=== PATIENT | female | born 1955 | race Caucasian/White ===

== ENCOUNTER 2018-10-15 13:28 | Inpatient (IN) | payer OTHER ==
[~2018-10-15] VITALS: Ht 165.1 cm; Wt 69.9 kg
[2018-10-15 14:00] VITALS: BP 110/79
--- NOTE | 2018-10-15 14:10 | NUR ---
Patient biba to er bed 9
--- NOTE | 2018-10-15 14:13 | NUR ---
Note mianone in EDM - 10/15/[address] [facility] MANNY. PATIENT C/O OF GENERALIZED WEAKNESS. VSS. AAOX4, ABLE TO VERBALIZE. NO COMPLAINTS OF PAIN. ABLE TO MOVE EXTREMITIES. NO TRAUMA OR INJURY.
--- NOTE | 2018-10-15 14:13 | NUR ---
BIBA. PATIENT C/O OF GENERALIZED WEAKNESS. VSS. AAOX4, ABLE TO VERBALIZE. NO COMPLAINTS OF PAIN. ABLE TO MOVE EXTREMITIES. NO TRAUMA OR INJURY. PMH: DENIES ALLERGIES: NKA MED RX: DENIES
--- NOTE | 2018-10-15 14:15 | NUR ---
PATIENT PRESENTS TO ED WITH GENERALIZED WEAKNESS.DENIES N/V/D. AAOX4. PATIENT STATES PAIN OF 0/10 AT THIS TIME;VSS; ABLE TO MOVE EXTREMITIES. DENIES ANY TRAUMA. PATIENT POSITIONED FOR COMFORT; HOB ELEVATED; BEDRAILS UP X2; BED DOWN. ER MD MADE AWARE OF PT STATUS. PMH: DENIES ALLLERGIES:NKA MED RX: DENIES
--- NOTE | 2018-10-15 14:40 | NUR ---
Patient being evaluated by physician at bedside.
--- NOTE | 2018-10-15 15:00 | NUR ---
LAB AT BEDSIDE
--- NOTE | 2018-10-15 15:09 | NUR ---
PT TO CT VIA RED WITH MANAGER RECRUITING
[2018-10-15 15:24] LABS: BASOPHILS # (AUTO) 0.1 K/uL (0.00-0.22); BASOPHILS % (AUTO) 0.3 % (0.0-2.0); EOSINOPHILS # (AUTO) 0.1 K/uL (0-0.4); EOSINOPHILS % (AUTO) 0.4 % (0.0-4.0); HEMATOCRIT 50.2 % (36-48); HEMOGLOBIN 16.4 g/dL (12.0-16.0); LYMPHOCYTES # (AUTO) 2.1 K/uL (2.5-16.5); LYMPHOCYTES % (AUTO) 9.9 % (20.5-51.1); MEAN CORPUSCULAR HEMOGLOBIN 26 pg (27-31); MEAN CORPUSCULAR HGB CONC 33 g/dL (33-37); MEAN CORPUSCULAR VOLUME 78.2 fL (80-94); MONOCYTES # (AUTO) 0.9 K/uL (0.8-1.0); MONOCYTES % (AUTO) 4.5 % (1.7-9.3); NEUTROPHILS # (AUTO) 17.5 K/uL (1.8-7.7); NEUTROPHILS % (AUTO) 84.9 % (42.2-75.2); PLATELET COUNT (AUTO) 454 K/uL (140-450); RED BLOOD CELL COUNT(AUTO) 6.42 MIL/uL (4.20-5.40); RED CELL DISTRIBUTION WIDTH 15.1 % (11.6-13.7); WHITE BLOOD COUNT (AUTO) 20.7 K/uL (4.8-10.8)
--- NOTE | 2018-10-15 15:24 | NUR ---
PT BACK FROM CT
[2018-10-15 15:41] LABS: BARBITURATE, URINE NEG. ng/ml (NEG <=200); BENZODIAZEPINE, URINE NEG. ng/mL (NEG <=200); CANNABINOID, URINE NEG. ng/mL (NEG <=50); COCAINE, URINE NEG. ng/mL (NEG <=300); OPIATE, URINE NEG. ng/mL (NEG <=2000); PHENCYCLIDINE SCREEN,URINE NEG. ng/mL (NEG <=25)
[2018-10-15 16:00] LABS: ALBUMIN 2.7 g/dL (3.4-5.0); ANION GAP 15.8 (8-16); ASPARTATE AMINOTRANSFERASE 42 U/L (15-37); CARBON DIOXIDE 27.4 mmol/L (21-32); CHLORIDE 104 mmol/L (98-107); GLUCOSE 116 mg/dL (74-106); POTASSIUM 3.2 mmol/L (3.5-5.1); SALICYLATE 4.5 mg/dL (2.8-20.0); SODIUM SERUM 144 mmol/L (136-145); TOTAL BILIRUBIN 0.7 mg/dL (0.0-1.0); UREA NITROGEN, BLOOD 37 mg/dL (7-18)
[2018-10-15 16:05] LABS: ACETAMINOPHEN < 0.5 ug/ml (10-30)
[2018-10-15 16:06] LABS: APPEARANCE,URINE CLEAR (CLEAR); BLOOD, URINE NEGATIVE (NEGATIVE); COLOR,URINE YELLOW (YELLOW); UGLUCOSE NEGATIVE (NEGATIVE)
[2018-10-15 16:07] LABS: BILIRUBIN,URINE 2+ (NEGATIVE); LEUKOCYTE ESTERASE ,URINE NEGATIVE (NEGATIVE); NITRITE, URINE NEGATIVE (NEGATIVE)
[2018-10-15 16:12] LABS: RBC,URINE NONE SEEN /HPF (0-5); WBC,URINE NONE SEEN /HPF (0-5)
[2018-10-15] MEDS ORDERED: ASPIRIN 81 MG TAB.CHEW PO ONE (16:15)
[2018-10-15] MEDS ORDERED: NACL 0.9% 1,000 ML IV ONE ×2 (16:15→17:10)
[2018-10-15 16:21] LABS: CREATININE 1.5 mg/dL (0.6-1.3); GFR ARICAN-AMERICAN 45 mL/min (>90)
[2018-10-15] MEDS ORDERED: AZITHROMYCIN 500 MG in DEXTROSE 5% 250 ML IV ONE (16:40)
--- NOTE | 2018-10-15 17:00 | NUR ---
Patient appears to be resting comfortably in bed. Respirations even and unlabored.
[2018-10-15] MEDS ORDERED: cefTRIAXone 1,000 MG VIAL ONE (17:26)
[2018-10-15] MEDS ORDERED: HEPARIN PER PHARMACY MC PRN (17:45)
[2018-10-15] MEDS ORDERED: AZITHROMYCIN 500 MG INJ VIAL IV ONE (18:16)
--- NOTE | 2018-10-15 18:18 | NUR ---
Patient will be admitted to care of DR. MALDONADO. Admited to TELE FLOOR. Will go to room 107-A. Belongings list completed. Report to MOOKIE MELCHOR.
[2018-10-15 18:28] LABS: PROTHROMBIN TIME 11.4 secs (10.8-13.4)
--- NOTE | 2018-10-15 18:30 | NUR ---
PATIENT ARRIVED ON UNIT VIA GURNEY AT THIS TIME AND ACCOMPANIED BY ER NURSES. PT IS AOX1 TO NAME. RESPIRATION EVEN AND UNLABORED. IN RA. NO SIGNS OF DISTRESS NOTED. IV ON R HAND 22G, INFUSING AZITHROMYCIN AT THIS TIME. IV PATENT AND INTACT. SKIN DRY AND INTACT. INCONTINENT. VITAL SIGNS TAKEN; BP 100/68, TEMP 97.8, SPO2 93%, RR 18, FLACC 0. NARES MRSA TAKEN. ATTACHED TO TELE MONITOR.ORIENTED PATIENT TO THE ROOM, USE THE TV, CALL LIGHT FOR ANY ASSISTANCE. SAFETY MEASURES IN PLACE. BED IN LOW POSITION, CALL LIGHT WITHIN REACH.
--- NOTE | 2018-10-15 18:33 | NUR ---
RECEIVED A CRITICAL LAB FROM LAB LACTIC ACID FROM 1720 LAB [address] CASPER AND DR CASPER WILL SEE THE PATIENT AT BEDSIDE.
[2018-10-15 19:00] VITALS: BP 98/64
--- NOTE | 2018-10-15 19:20 | NUR ---
ENDORSED PATIENT AT BEDSIDE TO ESL TUTOR FOR CONTINUITY OF CARE. INFORMED THE ESL TUTOR NURSE ABOUT CRITICAL LAB VALUE OF LACTIC ACID. PATIENT IS IN STABLE CONDITION.
--- NOTE | 2018-10-15 19:35 | NUR ---
RECEIVED ENDORSEMENT FROM RADHA DAMICOWOOD LATHERAGRICULTURAL APPRAISER NURSE DUE TO CHANGE IN ASSIGNMENT. INFORMED ABOUT CRITICAL LACTIC ACID. PT IN LOW BED AOX1. SHE IS ALERT TO NAME, AND HAS NO S/S OF PAIN OR DISTRESS NOTED. SKIN IN TACT, PT NOTED WITH AREA OF VERY DRY WHITE FLAKEY SKIN NEXT TO LEFT SIDE OF NOSTRIL. PT HAS 2 IV SITES 1 ON RIGHT HAND 20GUAGE INTACT AND FLUSHED PATENT, AND THE OTHER SITE IS A 24GUAGE ON LEFT HAND, INTACT AND FLUSHED PATENT. V/S FOLLOWS T 97.1 P 81 R 18 B/P 98/64 02 93% ON ROOM AIR. WILL REVIEW ORDERS.
[2018-10-15] MEDS: NACL 0.9% 1,000 ML IV SCH (19:45)
[2018-10-15] MEDS ORDERED: POTASSIUM CHLORIDE 40 MEQ, LIDOCAINE MPF 1% - 5 mL VIAL 25 MG in NACL 0.9% 250 ML IV SCH (20:00)
[2018-10-15] MEDS ORDERED: MECLIZINE 25 MG TAB PO PRN (20:20)
[2018-10-15] MEDS ORDERED: ONDANSETRON 4 MG/2 ML VIAL IM/IVP PRN (20:20)
[2018-10-15] MEDS ORDERED: DOCUSATE SODIUM 100 MG GELCAP PO PRN (20:20)
[2018-10-15] MEDS ORDERED: MORPHINE SULFATE 2 MG/ML SYR IVP PRN (20:20)
[2018-10-15] MEDS ORDERED: ACETAMINOPHEN 325 MG TAB PO PRN (20:20)
[2018-10-15] MEDS ORDERED: HYDROcodone/APAP 7.5/325 MG 1 TAB PO PRN (20:20)
[2018-10-15] MEDS ORDERED: ALBUTEROL SULFATE/IPRATROPIU 3 ML SOL IH PRN (20:25)
[2018-10-15] MEDS ORDERED: KCL 20 MEQ/WATER INJ PREMIX 200 ML IV SCH (21:00)
[2018-10-15] MEDS: hePARIN / DEXT 5% PREMIX 250 ML IV SCH (21:00)
--- NOTE | 2018-10-15 21:00 | NUR ---
HEPARIN BOLUS (3800 UNITS ) GIVEN IVP ORDERED FOR HEPARIN GTT. HEPARIN GTT ORDERED AT 800UNITS HUNG AND RUNNING ORDERED. HEPARIN RUNNING VIA RIGHT HAND IV SITE. BLOOD DRAWS SCHEDULED FOR 6HRS LATER. BAB AT BEDSIDE DRAWING BLOOD FOR LACTIC ACID. WILL MONITOR FOR RESULT. PT TURNED , CHANGED AND REPOSITIONED. PT PLACED ON FALLS PRECAUTIONS.
--- NOTE | 2018-10-15 21:05 | NUR ---
HEPARIN GTT WAS STARTED AT 2048. ORDERED LABS AT 0249 (6HRS LATER). POTASSIUM CHLORIDE 40MEQ WITH LIDOCAINE MIXED BY PHARMACY AND HUNG AT 68MLS/HR ORDERED, TO LEFT HAND 24GUAGE. WILL MONITOR PT FOR S/S OF BOOGIE OR DISCOMFORT. PT CURRENTLY IN BED RESTING WITH NO S/S OF PAIN OR DISTRESS NOTED.
[2018-10-15 21:11] LABS: PROTHROMBIN TIME 11.5 secs (10.8-13.4)
[2018-10-15] MEDS ORDERED: LIDOCAINE MPF 1% 5mL VIAL ONE (21:15)
[2018-10-15 21:25] LABS: PHOSPHORUS 2.7 mg/dL (2.5-4.9); THYROID STIMULATING HORMONE 1.07 uIU/mL (0.34-3.74)
[2018-10-16] VITALS: BP 97/55
--- NOTE | 2018-10-16 00:30 | NUR ---
PT IN BED NO S/S OF PAIN OR DISTRESS NOTED. PT TURNED, CHANGED AND REPOSITIONED. IV SITES INTACT AND RUINING HEPARIN AND IV POTASSIUM ORDERED. NO C/O VOICED BY PT. MOUTH CARE, PROVIDED. V/S FOLLOWS T 97.2 P 84 R 18 B/P 97/55 02 90% ON ROOM AIR. BED LOW BED AND ALL FALLS PRECAUTIONS IN PLACE.
--- NOTE | 2018-10-16 02:15 | NUR ---
RT AT BEDSIDE EVALUATING PT DUE TO PT STATING 88%. PT PLACED ON 2LITERS VIA N/C.
--- NOTE | 2018-10-16 02:50 | NUR ---
LAB DRAWS AT BEDSIDE FOR PT AND PTT. WILL MONITOR RESULTS.
[2018-10-16 04:00] VITALS: BP 96/70
[2018-10-16] MEDS: NACL 0.9% 1,000 ML IV SCH ×3 (04:05→22:11)
[2018-10-16] MEDS: hePARIN / DEXT 5% PREMIX 250 ML IV SCH (04:31)
--- NOTE | 2018-10-16 04:33 | NUR ---
PTT 39.5 1900UNITS HEPARIN GIVEN PER PROTOCOL AND HEPARIN GTT INCREASED TO 930 UNITS/HR. WILL ORDER NEXT BLOOD DRAW AT 1029.
[2018-10-16 04:46] LABS: BASOPHILS # (AUTO) 0.1 K/uL (0.00-0.22); BASOPHILS % (AUTO) 0.5 % (0.0-2.0); EOSINOPHILS # (AUTO) 0.2 K/uL (0-0.4); EOSINOPHILS % (AUTO) 1.2 % (0.0-4.0); HEMATOCRIT 42.3 % (36-48); HEMOGLOBIN 14.1 g/dL (12.0-16.0); LYMPHOCYTES # (AUTO) 2.3 K/uL (2.5-16.5); LYMPHOCYTES % (AUTO) 13.2 % (20.5-51.1); MEAN CORPUSCULAR HEMOGLOBIN 26 pg (27-31); MEAN CORPUSCULAR HGB CONC 33 g/dL (33-37); MEAN CORPUSCULAR VOLUME 77.8 fL (80-94); MONOCYTES # (AUTO) 0.9 K/uL (0.8-1.0); MONOCYTES % (AUTO) 5.3 % (1.7-9.3); NEUTROPHILS # (AUTO) 13.9 K/uL (1.8-7.7); NEUTROPHILS % (AUTO) 79.8 % (42.2-75.2); PLATELET COUNT (AUTO) 396 K/uL (140-450); RED BLOOD CELL COUNT(AUTO) 5.45 MIL/uL (4.20-5.40); WHITE BLOOD COUNT (AUTO) 17.5 K/uL (4.8-10.8)
[2018-10-16 05:01] LABS: ANION GAP 15.3 (8-16); CREATININE 1.3 mg/dL (0.6-1.3); POTASSIUM 3.3 mmol/L (3.5-5.1)
--- NOTE | 2018-10-16 05:23 | NUR ---
FABIENNE FROM LAB CALLED TO REPORT CRITICAL VALUES CALCIUM IS 16.[address] CASPER MADE AWARE, NO NEW ORDERS NOTED.
[2018-10-16 05:28] LABS: CHOL/HDL RATIO 3.2 (1-4.5); PHOSPHORUS 2.8 mg/dL (2.5-4.9)
[2018-10-16] MEDS ORDERED: KCL 20 MEQ/WATER INJ PREMIX 100 ML IV SCH ×2 (06:00→13:56)
--- NOTE | 2018-10-16 06:42 | NUR ---
PT IN BED NO S/S OF PAIN OR DISTRESS NOTED V/S FOLLOWS T 97.1 P 80 R 18 B/P 96/70 02 94 WITH 2L N/C.
[2018-10-16] MEDS: ALBUTEROL SULFATE/IPRATROPIU 3 ML SOL IH SCH ×3 (07:00→19:29)
--- NOTE | 2018-10-16 07:10 | NUR ---
RECEIVED BEDSIDE REPORT FROM MOOKIE TURPIN. PT STABLE, SLEEPING, BUT EASILY AROUSABLE. NO SIGNS OF DISTRESS NOTED. ON 2L O2. NO REDNESS, SWELLING, OR INFLAMMATION NOTED ON IV SITE. HEPARIN DRIP RUNNING AT 930 UNITS/HR. CALL TORRES WITHIN REACH. BED IN LOWEST POSITION. SAFETY MEASURES IN PLACE. PLAN OF CARE REVIEWED.
[2018-10-16 08:00] VITALS: BP 99/62
--- NOTE | 2018-10-16 09:40 | NUR ---
PT REPOSITIONED. LINENS AND GOWN CHANGED. PT TOLERATED WELL.
[2018-10-16 11:32] LABS: PROTHROMBIN TIME 10.9 secs (10.8-13.4)
--- NOTE | 2018-10-16 11:50 | NUR ---
ADMINISTERED SCHEDULED MEDICATION, PT TOLERATED WELL. NO OTHER NEEDS AT THIS TIME.
[2018-10-16 12:00] VITALS: BP 98/63
--- NOTE | 2018-10-16 12:30 | NUR ---
PT TAKEN TO HAVE CT SCAN. CONSENT SIGNED BY DR. SALINAS AND DR. FRANCIS. PT UNABLE TO SIGN CONSENT DUE TO CONFUSION.
[2018-10-16] MEDS: CLINDAMYCIN 600 MG in DEXTROSE 5% 50 ML IV SCH ×2 (13:48→20:06)
--- NOTE | 2018-10-16 14:11 | NUR ---
PT UNABLE TO PRODUCE SPUTUM AT THIS TIME
--- NOTE | 2018-10-16 14:56 | NUR ---
ADMINISTERED SCHEDULED MEDICATION, PT TOLERATED WELL. NO OTHER NEEDS AT THIS TIME.
--- NOTE | 2018-10-16 15:00 | NUR ---
copy worker Notes: I attempted to meet with Patient for a screen Patient was only able to provide limited information and collateral. Therefore; screen was not complete. Patient reported living at home with her brother however; she was not able to provide his name or contact information. Patient stated that she has no issues with medications and has a walker only at home as her special equipment. Patient do not have advance directives and wants to go back at home after her discharge from [facility].
[2018-10-16 16:00] VITALS: BP 96/63
--- NOTE | 2018-10-16 16:30 | NUR ---
VITAL SIGNS TAKEN, PT STABLE, SLEEPING, BUT EASILY AROUSABLE.
[2018-10-16] MEDS ORDERED: AZITHROMYCIN 250 MG in DEXTROSE 5% 250 ML IV SCH (18:00)
--- NOTE | 2018-10-16 18:02 | NUR ---
ADMINISTERED SCHEDULED MEDICATION, PT TOLERATED WELL. NO OTHER NEEDS AT THIS TIME.
--- NOTE | 2018-10-16 19:10 | NUR ---
ENDORSED PT TO RN SULEMAN FOR CONTINUITY OF CARE. PT STABLE, SLEEPING, BUT EASILY AROUSABLE.
--- NOTE | 2018-10-16 19:20 | NUR ---
RECEIVED BEDSIDE REPORT FROM ROBERTO CARLOS DAMICO. PT IS AAO X 1 SELF. PT ON NC 2L. NO S/S OF DISTRESS NOTED. PT HAS A DRY FACIAL LESION ON LEFT SIDE OF FACE . PT IS INCONTINENT. PT WITH LOW K 3.3 RECEIVED K RIDER 40 MEQ TODAY. UA COLLECTED. SPUTUM INDUCTION PENDING. PT WITH MX IVS: R HAND 22G L HAND 24 G L AC 20G SL. PT ON NS AT 120ML/H. BED ALARM IS ON AND BED ON LOWEST POSITION. PLAN OF CARE DISCUSSED WITH PT. CALL LIGHT WITHIN REACH.
[2018-10-16 20:00] VITALS: BP 96/67
--- NOTE | 2018-10-16 20:11 | NUR ---
VITAL SIGNS ARE STABLE B/P ON LOWER END: 96/67 HR 83 O2 SAT 94% ON 2L NC. DUE MEDICATIONS GIVEN. PT TOLERATED WELL. ALL NEEDS MET AT THIS TIME. BED ALARM ON
--- NOTE | 2018-10-16 20:40 | NUR ---
DR VARNER SEEN PT. PT WITH HIGH CA. WILL FOLLOW NEW ORDERS.
[2018-10-17] VITALS: BP 103/65
--- NOTE | 2018-10-17 | NUR ---
VITAL SIGNS ARE STABLE/ NO S/S OF DISTRESS. ALL SAFETY MEASURES ARE IN PLACE. WILL CONTINUE TO MONITOR.
--- NOTE | 2018-10-17 01:09 | NUR ---
PT SLEEPING COMFORTABLY IN BED. NO S/S OF DISTRESS. BED ALARM ON. WILL CONTINUE TO MONITOR
[2018-10-17 04:00] VITALS: BP 106/73
--- NOTE | 2018-10-17 04:00 | NUR ---
VITAL SIGNS ARE STABLE. PT REMAINS AAO X 1. ALL NEEDS MET AT THIS TIME. CALL LIGHT WITHIN REACH
[2018-10-17] MEDS: CLINDAMYCIN 600 MG in DEXTROSE 5% 50 ML IV SCH (04:46)
[2018-10-17] MEDS: NACL 0.9% 1,000 ML IV SCH ×3 (04:46→19:47)
--- NOTE | 2018-10-17 04:46 | NUR ---
CLEOCIN NOW INFUSING PER ORDERS. SAFETY MEASURES ARE IN PLACE. CALL LIGHT WITHIN REACH.
--- NOTE | 2018-10-17 05:01 | NUR ---
PATIENT UNABLE TO PROVIDE SPUTUM SAMPLE AT THIS TIME. SPECIMEN CUP AT BEDSIDE WITHIN REACH.
[2018-10-17] MEDS: ALBUTEROL SULFATE/IPRATROPIU 3 ML SOL IH SCH ×3 (06:35→19:00)
--- NOTE | 2018-10-17 07:20 | NUR ---
GAVE BEDSIDE REPORT TO VESTA DAMICO. PT ENDORSED IN STABLE CONDITION.
--- NOTE | 2018-10-17 07:21 | NUR ---
RECEIVED REPORT FROM CAR DELIVERER NURSE. PATIENT LYING DOWN IN BED SLEEPING, AROUSABLE BY VOICE. NO DISTRESS NOTED. DENIES ANY PAIN. AOX1, CALM, COOPERATIVE, DROWSY, SKIN COLOR APPROPRIATE TO ETHNICITY. SKIN IS INTACT, HOWEVER, HAS LEFT NOSE CLOSED LESION/SCAB NOTED. RESPIRATIONS EVEN, UNLABORED, ON O2 2L/MIN VIA NC. IV SITES INTACT, PATENT, AND INFUSING IVF PER MD ORDERS. REVIEWED PLAN OF CARE WITH PATIENT. PATIENT VERBALIZED UNDERSTANDING. SAFETY MEASURES IN PLACE, CALL LIGHT WITHIN REACH. WILL CONTINUE TO MONITOR.
[2018-10-17 07:27] LABS: HEMATOCRIT 44.5 % (36-48); HEMOGLOBIN 14.7 g/dL (12.0-16.0); MEAN CORPUSCULAR HEMOGLOBIN 26 pg (27-31); MEAN CORPUSCULAR HGB CONC 33 g/dL (33-37); MEAN CORPUSCULAR VOLUME 79.3 fL (80-94); PLATELET COUNT (AUTO) 382 K/uL (140-450); RED BLOOD CELL COUNT(AUTO) 5.62 MIL/uL (4.20-5.40); WHITE BLOOD COUNT (AUTO) 15.9 K/uL (4.8-10.8)
[2018-10-17 07:36] LABS: ANION GAP 14.4 (8-16); CARBON DIOXIDE 25.7 mmol/L (21-32); CREATININE 1.5 mg/dL (0.6-1.3); POTASSIUM 3.1 mmol/L (3.5-5.1)
[2018-10-17 08:00] VITALS: BP 99/64
[2018-10-17 08:02] LABS: BASOPHILS % (MANUAL) 0 % (0-2); EOSINOPHILS % (MANUAL) 1 % (0-4); LYMPHOCYTES % (MANUAL) 15 % (20-46); MONOCYTES % (MANUAL) 6 % (5-12)
[2018-10-17] MEDS ORDERED: CALCITONIN INJ 200 IU/ML VIAL SUBQ SCH (09:00)
--- NOTE | 2018-10-17 09:01 | NUR ---
PATIENT LYING DOWN IN BED, NO DISTRESS NOTED. CONFUSED. SCHEDULED MEDICATIONS DUE GIVEN. WILL CONTINUE TO MONITOR.
--- NOTE | 2018-10-17 09:51 | NUR ---
PATIENT HAS BEEN SCREENED AND CATEGORIZED HIGH NUTRITION RISK. PATIENT WILL BE SEEN WITHIN 1-2 DAYS OF ADMISSION. 10/16/18-10/17/[address]
[2018-10-17] MEDS ORDERED: NACL 0.9% IV SCH (10:00)
[2018-10-17] MEDS ORDERED: PAMIDRONATE IV SCH (10:00)
--- NOTE | 2018-10-17 10:18 | NUR ---
ASSISTED MARK UP DESIGNER IN CLEANING AND REPOSITIONING PATIENT. SCHEDULED MEDICATIONS DUE GIVEN. WILL CONTINUE TO MONITOR.
[2018-10-17 12:00] VITALS: BP 112/61
--- NOTE | 2018-10-17 13:15 | NUR ---
10/17/18 RD INITIAL ASSESSMENT COMPLETED PLEASE REFER TO NUTRITION ASSESSMENT UNDER CARE ACTIVITY FOR ESTIMATED NUTRITIONAL NEEDS. RD RECOMMENDATIONS: 1. RECOMMEND ORDERING A SWALLOW EVALUATION D/T PT WITH SWALLOWING DIFFICULTY. --F/U WITH LUMBER STACKER OPERATOR RECOMMENDATIONS. 2. ENCOURAGE ORAL INTAKE APPROPRIATE. 3. RD WILL F/U 2-3 DAYS; HIGH RISK. PIPPA GREEN, RD
[2018-10-17] MEDS: CLINDAMYCIN PHOS 600MG/D5W PM 50 ML IV SCH ×2 (13:42→20:15)
--- NOTE | 2018-10-17 13:50 | NUR ---
PATIENT LYING DOWN IN BED SLEEPING, AROUSABLE BY VOICE. NO DISTRESS NOTED. FLACC 0. SCHEDULED MEDICATIONS DUE GIVEN. WILL CONTINUE TO MONITOR.
--- NOTE | 2018-10-17 15:33 | NUR ---
PT REFUSED ECHOCARDIOGRAM. NOTIFIED DR. SALINAS
[2018-10-17 16:00] VITALS: BP 105/60
--- NOTE | 2018-10-17 17:05 | NUR ---
ASSISTED RAILROAD TRACK MECHANIC IN CLEANING AND REPOSITIONING PATIENT. SCHEDULED MEDICATIONS DUE GIVEN. WILL CONTINUE TO MONITOR.
[2018-10-17] MEDS: KCL 20 MEQ/WATER INJ PREMIX 200 ML IV SCH ×2 (18:11→20:59)
--- NOTE | 2018-10-17 19:28 | NUR ---
GAVE REPORT TO CASH SALES AUDIT CLERK NURSE FOR CONTINUITY OF CARE. PATIENT IN STABLE CONDITION.
--- NOTE | 2018-10-17 19:30 | NUR ---
RECEIVED BEDSIDE REPORT FROM VESTA DAMICO. PT IS AAO X 1 SELF. PT ON NC 2L. NO S/S OF DISTRESS NOTED. PT HAS A DRY FACIAL LESION ON LEFT SIDE OF FACE . PT IS INCONTINENT. PT WITH LOW K 3.1. FIRST BAG OF K RIDER INFUSING RIGHT NOW. SPUTUM INDUCTION PENDING. PT WITH MX IVS: R HAND 22G IS INFUSING K-RIDER L HAND 24 G & R AC 20G SL. PT ON NS AT 80 ML/H. BED ALARM IS ON AND BED ON LOWEST POSITION. PLAN OF CARE DISCUSSED WITH PT. CALL LIGHT WITHIN REACH.
[2018-10-17 20:00] VITALS: BP 103/59
--- NOTE | 2018-10-17 20:00 | NUR ---
DR VARNER IN TO SEE PT. CHANGED IVF TO 1/2 NS @ 150ML/H. PTS CA STILL ELEVATED AT 16.8. WILL FOLLOW ORDERS.
--- NOTE | 2018-10-17 20:15 | NUR ---
VITAL SIGNS ARE STABLE: 103/59 HR 95 94% ON NC 2L. DUE MEDICATIONS GIVEN PT TOLERATED WELL. CLEOCIN NOW INFUSING PER ORDERS. SAFETY MEASURES ARE IN PLACE.
[2018-10-17] MEDS ORDERED: NACL 0.45% 1,000 ML IV SCH (20:25)
[2018-10-17] MEDS: NACL 0.45% 1,000 ML IV SCH (20:57)
--- NOTE | 2018-10-17 20:59 | NUR ---
K AMANDA 20MEQ NOW INFUSING PER ORDERS. WILL CONTINUE TO MONITOR.
--- NOTE | 2018-10-17 22:00 | NUR ---
PT SLEEPING COMFORTABLY IN BED. RESPIRATIONS ARE EQUAL AND UNLABORED. WILL CONTINUE TO MONITOR
[2018-10-18] VITALS: BP 113/68
--- NOTE | 2018-10-18 00:40 | NUR ---
VITAL SIGNS ARE WITHIN NORMAL LIMITS. ALL SAFETY MEASURES ARE IN PLACE.
--- NOTE | 2018-10-18 02:30 | NUR ---
PT SLEEPING COMFORTABLY IN BED. NO S/S OF DISTRESS. SAFETY MEASURES ARE IN PLACE.
[2018-10-18 04:00] VITALS: BP 109/81
[2018-10-18] MEDS: CLINDAMYCIN PHOS 600MG/D5W PM 50 ML IV SCH ×3 (04:11→21:47)
[2018-10-18] MEDS: NACL 0.45% 1,000 ML IV SCH ×5 (04:12→22:50)
--- NOTE | 2018-10-18 04:19 | NUR ---
VITAL SIGNS ARE STABLE. NEW BAG OF IVF HANG AND CLEOCIN NOW INFUSING PER ORDERS. ALL NEEDS MET AT THIS TIME. BED ALARM ON.
[2018-10-18 06:27] LABS: BASOPHILS # (AUTO) 0.1 K/uL (0.00-0.22); BASOPHILS % (AUTO) 0.7 % (0.0-2.0); EOSINOPHILS # (AUTO) 0.3 K/uL (0-0.4); HEMATOCRIT 41.2 % (36-48); HEMOGLOBIN 13.5 g/dL (12.0-16.0); LYMPHOCYTES # (AUTO) 1.2 K/uL (2.5-16.5); LYMPHOCYTES % (AUTO) 8.7 % (20.5-51.1); MEAN CORPUSCULAR HEMOGLOBIN 26 pg (27-31); MEAN CORPUSCULAR HGB CONC 33 g/dL (33-37); MEAN CORPUSCULAR VOLUME 78.2 fL (80-94); MONOCYTES # (AUTO) 0.4 K/uL (0.8-1.0); MONOCYTES % (AUTO) 3.2 % (1.7-9.3); NEUTROPHILS # (AUTO) 11.7 K/uL (1.8-7.7); NEUTROPHILS % (AUTO) 85.4 % (42.2-75.2); PLATELET COUNT (AUTO) 354 K/uL (140-450); RED BLOOD CELL COUNT(AUTO) 5.27 MIL/uL (4.20-5.40); RED CELL DISTRIBUTION WIDTH 15.3 % (11.6-13.7); WHITE BLOOD COUNT (AUTO) 13.6 K/uL (4.8-10.8)
[2018-10-18 06:41] LABS: MAGNESIUM 1.8 mg/dL (1.8-2.4); PHOSPHORUS 2.4 mg/dL (2.5-4.9)
[2018-10-18 06:49] LABS: ANION GAP 13.3 (8-16); CARBON DIOXIDE 24.8 mmol/L (21-32); CREATININE 1.6 mg/dL (0.6-1.3); POTASSIUM 3.1 mmol/L (3.5-5.1)
[2018-10-18] MEDS: ALBUTEROL SULFATE/IPRATROPIU 3 ML SOL IH SCH ×3 (06:57→19:15)
--- NOTE | 2018-10-18 07:26 | NUR ---
GAVE BEDSIDE REPORT TO VESTA DAMICO. PT ENDORSED IN STABLE CONDITION.
--- NOTE | 2018-10-18 07:27 | NUR ---
RECEIVED REPORT FROM BAND SAWMILL OPERATOR NURSE. PATIENT LYING DOWN IN BED SLEEPING, AROUSABLE BY VOICE. NO DISTRESS NOTED. DENIES ANY PAIN. AOX1, CALM, COOPERATIVE, DROWSY, SKIN COLOR APPROPRIATE TO ETHNICITY. SKIN IS INTACT, HOWEVER, HAS LEFT NOSE CLOSED LESION/SCAB NOTED. RESPIRATIONS EVEN, UNLABORED, ON O2 2L/MIN VIA NC. IV SITES INTACT, PATENT, AND INFUSING IVF PER MD ORDERS. REVIEWED PLAN OF CARE WITH PATIENT. PATIENT VERBALIZED UNDERSTANDING. SAFETY MEASURES IN PLACE, CALL LIGHT WITHIN REACH. WILL CONTINUE TO MONITOR.
[2018-10-18 08:00] VITALS: BP 106/66
--- NOTE | 2018-10-18 08:40 | NUR ---
PATIENT LYING DOWN IN BED SLEEPING, AROUSABLE BY VOICE. NO DISTRESS NOTED. FLACC 0. SCHEDULED MEDICATIONS DUE GIVEN. WILL CONTINUE TO MONITOR.
--- NOTE | 2018-10-18 09:30 | NUR ---
PHYSICAL THERAPISTS AT BEDSIDE WORKING WITH PATIENT. WILL CONTINUE TO MONITOR.
--- NOTE | 2018-10-18 10:26 | NUR ---
ST LEUNGAL BEING PERFORMED AT BEDSIDE. WILL CONTINUE TO MONITOR.
--- NOTE | 2018-10-18 10:44 | NUR ---
S.T. BEDSIDE SWALLOW EVAL COMPLETED See report for details. Pt presents with severe oropharyngeal dysphagia c/b limited strength and coordination of oromotor structures, poor oral control of all boluses and delayed coughing after swallows of puree and nectar and honey thick liquids. Pt appears to be at high risk for aspiration. Recommend: 1) NPO; discontinue P.O. diet order; alternate non-oral means of nutrition, hydration and meds. 2) S.T. to follow up tomorrow x1/1 week w/ P.O. trials. At this time, pt does not present as strong rehab candidate. D/w MOOKIE Broussard. Time : 8245-1066
--- NOTE | 2018-10-18 11:02 | NUR ---
RECEIVED ORDER FOR [facility] EVAL FOR P.T. AT [facility]. FAXED INFORMATION TO [facility] [phone] PHONE [phone]
[2018-10-18 12:00] VITALS: BP 119/70
--- NOTE | 2018-10-18 12:11 | NUR ---
PATIENT LYING DOWN IN BED SLEEPING ,AROUSABLE BY VOICE. NO DISTRESS NOTED. FLACC 0. CONDITION UNCHANGED. SCHEDULED MEDICATIONS DUE GIVEN. WILL CONTINUE TO MONITOR.
[2018-10-18] MEDS ORDERED: FUROSEMIDE 20 MG/2 ML VIAL IVP SCH (12:15)
--- NOTE | 2018-10-18 13:14 | NUR ---
SCHEDULED MEDICATIONS DUE GIVEN. CONDITION UNCHANGED. WILL CONTINUE TO MONITOR.
[2018-10-18] MEDS ORDERED: POTASSIUM CHLORIDE 40 MEQ, LIDOCAINE MPF 1% - 5 mL VIAL 25 MG in NACL 0.9% 250 ML IV SCH (14:00)
[2018-10-18 16:00] VITALS: BP 116/72
[2018-10-18] MEDS ORDERED: POTASSIUM CHLORIDE 40 MEQ, LIDOCAINE MPF 1% - 5 mL VIAL 25 MG in NACL 0.9% 250 ML IV ONE (16:40)
--- NOTE | 2018-10-18 17:08 | NUR ---
PATIENT LYING DOWN IN BED SLEEPING, AROUSABLE BY VOICE. NO DISTRESS NOTED. FLACC 0. SCHEDULED MEDICATIONS DUE GIVEN. WILL CONTINUE TO MONITOR.
--- NOTE | 2018-10-18 19:31 | NUR ---
GAVE REPORT TO NURSE EMERGENCY ROOM NURSE FOR CONTINUITY OF CARE. PATIENT IN STABLE CONDITION.
--- NOTE | 2018-10-18 19:32 | NUR ---
RECEIVED REPORT FROM DAY SHIFT NURSE VESTA-RN AT BEDSIDE. PT SLEEPING IN BED-LETHARGIC, ON 2L/NC, WITH LEFT HAND #24, RIGHT AC #20 AND RIGHT HAND #22G. PT IS BEDBOUND AT THIS TIME AND INCONTINENT. PT UNABLE TO VERBALIZED UNDERSTANDING WHEN PLAN OF CARE WAS DISCUSSED. BED IN LOWEST POSITION, BED BREAKS ON, BOTH SIDE RAILS UP AND FALL PRECAUTIONS ARE IN PLACE. BEDSIDE TABLE AND CALL LIGHT ARE WITHIN REACH. WILL CONTINUE TO MONITOR.
--- NOTE | 2018-10-18 19:58 | NUR ---
ROOM AIR SATS 88%. PLACED PT ON 2LNC
[2018-10-18 20:00] VITALS: BP 97/59
[2018-10-18] MEDS ORDERED: POTASSIUM PHOSPHATE 15 MM in NACL 0.9% 250 ML IV SCH (20:00)
--- NOTE | 2018-10-18 20:00 | NUR ---
VITAL SIGNS TAKEN AND TOLERATED WELL. NO S/S OF RESPIRATORY DISTRESS OR DISCOMFORT NOTED AT THIS TIME. WILL CONTINUE TO MONITOR.
[2018-10-18 20:36] LABS: ANION GAP 14.4 (8-16); CARBON DIOXIDE 21.2 mmol/L (21-32); CREATININE 1.7 mg/dL (0.6-1.3); POTASSIUM 3.6 mmol/L (3.5-5.1)
--- NOTE | 2018-10-18 20:45 | NUR ---
SCHEDULED MEDICATION POTASSIUM PHOSPHATE GIVEN AND TOLERATED WELL. NO S/S OF RESPIRATORY DISTRESS OR DISCOMFORT NOTED AT THIS TIME. WILL CONTINUE TO MONITOR.
--- NOTE | 2018-10-18 21:53 | NUR ---
SCHEDULED MEDICATION CLINDAMYCIN AND HEPARIN GIVEN AND TOLERATED WELL. NO S/S OF RESPIRATORY DISTRESS OR DISCOMFORT NOTED AT THIS TIME. WILL CONTINUE TO MONITOR.
--- NOTE | 2018-10-18 23:00 | NUR ---
PT SLEEPING AT THIS TIME. NO S/S OF RESPIRATORY DISTRESS OR DISCOMFORT NOTED AT THIS TIME. WILL CONTINUE TO MONITOR.
[2018-10-19] VITALS: BP 91/63
--- NOTE | 2018-10-19 | NUR ---
VITAL SIGNS TAKEN AND TOLERATED WELL. NO S/S OF RESPIRATORY DISTRESS OR DISCOMFORT NOTED AT THIS TIME. WILL CONTINUE TO MONITOR.
--- NOTE | 2018-10-19 02:00 | NUR ---
PT CONTINUES TO SLEEP IN BED. NO S/S OF RESPIRATORY DISTRESS OR DISCOMFORT NOTED AT THIS TIME. WILL CONTINUE TO MONITOR.
[2018-10-19 04:00] VITALS: BP 96/63
--- NOTE | 2018-10-19 04:00 | NUR ---
VITAL SIGNS TAKEN AND TOLERATED WELL. NO S/S OF RESPIRATORY DISTRESS OR DISCOMFORT NOTED AT THIS TIME. WILL CONTINUE TO MONITOR.
[2018-10-19] MEDS: CLINDAMYCIN PHOS 600MG/D5W PM 50 ML IV SCH ×3 (04:44→20:30)
--- NOTE | 2018-10-19 04:44 | NUR ---
SCHEDULED MEDICATION CLINDAMYCIN GIVEN AND TOLERATED WELL. NO S/S OF RESPIRATORY DISTRESS OR DISCOMFORT NOTED AT THIS TIME. WILL CONTINUE TO MONITOR.
[2018-10-19] MEDS: NACL 0.45% 1,000 ML IV SCH ×3 (04:45→13:03)
[2018-10-19 06:39] LABS: ANION GAP 13.5 (8-16); CREATININE 1.6 mg/dL (0.6-1.3); POTASSIUM 3.5 mmol/L (3.5-5.1)
[2018-10-19 06:42] LABS: BASOPHILS # (AUTO) 0.1 K/uL (0.00-0.22); BASOPHILS % (AUTO) 0.7 % (0.0-2.0); EOSINOPHILS # (AUTO) 0.2 K/uL (0-0.4); HEMATOCRIT 37.7 % (36-48); HEMOGLOBIN 12.6 g/dL (12.0-16.0); LYMPHOCYTES # (AUTO) 1.4 K/uL (2.5-16.5); LYMPHOCYTES % (AUTO) 14.5 % (20.5-51.1); MAGNESIUM 1.7 mg/dL (1.8-2.4); MEAN CORPUSCULAR HEMOGLOBIN 26 pg (27-31); MEAN CORPUSCULAR HGB CONC 34 g/dL (33-37); MEAN CORPUSCULAR VOLUME 77.1 fL (80-94); MONOCYTES # (AUTO) 0.4 K/uL (0.8-1.0); MONOCYTES % (AUTO) 4.4 % (1.7-9.3); NEUTROPHILS # (AUTO) 7.5 K/uL (1.8-7.7); NEUTROPHILS % (AUTO) 78.4 % (42.2-75.2); PHOSPHORUS 3.1 mg/dL (2.5-4.9); PLATELET COUNT (AUTO) 285 K/uL (140-450); RED BLOOD CELL COUNT(AUTO) 4.89 MIL/uL (4.20-5.40); RED CELL DISTRIBUTION WIDTH 15.3 % (11.6-13.7); WHITE BLOOD COUNT (AUTO) 9.6 K/uL (4.8-10.8)
[2018-10-19] MEDS: ALBUTEROL SULFATE/IPRATROPIU 3 ML SOL IH SCH ×3 (07:02→18:55)
--- NOTE | 2018-10-19 07:34 | NUR ---
ENDORSED PT CARE TO DAY SHIFT NURSE CARRIE FOR CONTINUITY OF CARE.
--- NOTE | 2018-10-19 07:35 | NUR ---
RECEIVED BEDSIDE REPORT FROM MOLD COOLER NURSE FOR CONTINUITY OF CARE. A/OX1 TO NAME, ON 2L/MIN NASAL CANNULA. RESPIRATION IS UNLABORED. DENIES PAIN. NO DISTRESS NOTED AT INITIAL ASSESSMENT. PT ABLE TO MAKE NEEDS KNOWN, AND ABLE TO FOLLOW COMMANDS. SKIN INTACT AND CLEAN. IV ON L HAND 24G INFUSING PER MD ORDER, ASYMPTOMATIC AND PATENT, INFUSING PER MD ORDER. RAC 20G, SL AND R HAND 22G SL. PT IS BEDREST. VITAL SIGNS TAKEN. PT POSITIONED FOR COMFORT. SEQUENTIAL COMPRESSION SOCKS IN PLACE. DISCUSSED PLAN OF CARE WITH PATIENT, PATIENT SAID " I JUST WANT TO GO HOME." SAFETY MEASURES IN PLACE. FALL RISK SIGN POSTED AND PATIENT IS WEARING YELLOW GOWN AND SOCKS. BED IN LOW POSITION AND CALL LIGHT WITHIN REACH. EDUCATED PATIENT TO USE CALL LIGHT FOR ANY ASSISTANCE.
--- NOTE | 2018-10-19 07:42 | NUR ---
PATIENT IS SITTING UP ON BED AND BAG MACHINE ADJUSTER IS TRYING TO FEED PATIENT TO EAT BREAKFAST. PATIENT REFUSED TO EAT, AND SAYING " I DON'T WANT TO EAT ANYTHING. I JUST WANT TO GO HOME." EDUCATED PATIENT ON THE IMPORTANCE OF EATING ADEQUATELY AND GOOD NUTRITION IS NECESSARY TO PROMOTE RECOVERY.
[2018-10-19 08:00] VITALS: BP 98/65
[2018-10-19] MEDS ORDERED: AMOX-999 PO (08:51)
[2018-10-19] MEDS ORDERED: LACT10CA1 PO (08:52)
--- NOTE | 2018-10-19 09:16 | NUR ---
DR LOTT IS TALKING TO PATIENT AT BEDSIDE. PATIENT IS SITTING UP ON BED AND WATCHING TV. NO SIGNS OF DISTRESS NOTED.
--- NOTE | 2018-10-19 11:15 | NUR ---
PATIENT IS RESTING ON BED. NO SIGNS OF DISTRESS NOTED. SAFETY MEASURES ARE IN PLACE. BED IN LOW POSITION AND CALL LIGHT WITHIN REACH.
--- NOTE | 2018-10-19 11:24 | NUR ---
FNS CONSULT HAS BEEN RECEIVED FOR FAILURE TO THRIVE. INITIAL ASSESSMENT WAS COMPLETED ON 10/17/18. RECOMMENDATIONS WERE MADE FOR A SWALLOW EVALUATION. WILL FOLLOW UP ON PATIENT WITHIN 1-2 DAYS. 10/19/18-10/20/[address]
[2018-10-19 12:00] VITALS: BP 96/61
--- NOTE | 2018-10-19 12:27 | NUR ---
RECEIVED A CALL FROM GUS AT [facility] . THEY WILL ACCEPT THE PATIENT WHEN DISCHARGED. SHE CAN GO TO ROOM 709B UNDER DR. HUANG.
--- NOTE | 2018-10-19 12:36 | NUR ---
S.T. TREATMENT NOTE Time 6720-0448 S: Pt seen at bedside. No family/caregiver present at time of treatment. Lunch tray on tray table, untouched. Cleared by zinc furnace charger Jowie to attempt P.O. trials. Pt repeatedly refused P.O. trials and stated x3, "I want to go home." O: Pt was awakened verbally, offered a variety of foods and liquids on lunch tray as well as gelatin brought in by clinician. Pt refused all P.O. trials, stating "I want to go home" in response to every trial offered. A: Pt not cooperative at this time. Plan is for pt to transfer to hospice. Recommend continue S.T. with clinical bedside swallow eval with speech therapy at that time. P: DC to [facility] at this time as pt presents with poor prognosis and poor motivation to participate in therapy at this time.
--- NOTE | 2018-10-19 13:08 | NUR ---
PATIENT IS RESTING WITH EYE CLOSED ON BED AT THIS TIME. FLACC 0. NO SIGNS OF DISTRESS NOTED. SEQUENTIAL SOCKS IN PLACE. SAFETY MEASURES IN PLACE. BED IN LOW POSITION AND CALL LIGHT WITHIN REACH.
[2018-10-19] MEDS ORDERED: MAG SULF 2000 MG/WATER PREMIX 50 ML IV SCH (14:00)
--- NOTE | 2018-10-19 14:23 | NUR ---
ADMINISTERED IVP MAGNESIUM PER MD ORDER. MAGNESIUM LEVEL IS 1.7 FROM AM LAB. PATIENT IS RESTING ON BED. NO SIGNS OF DISTRESS NOTED.SAFETY MEASURES ARE IN PLACE. SEQUENTIAL COMPRESSION SOCKS ARE IN PLACE.
--- NOTE | 2018-10-19 14:28 | NUR ---
DR GONZALEZ IS TALKING TO PATIENT AT BEDSIDE.
[2018-10-19 16:00] VITALS: BP 96/57
--- NOTE | 2018-10-19 17:01 | NUR ---
PATIENT IS WATCHING TV ON BED. FLACC 0. NO SIGNS OF DISTRESS NOTED.
--- NOTE | 2018-10-19 18:16 | NUR ---
PATIENT REFUSED TO EAT AND STATED, " I AM FASTING. DO NOT FORCE ME." DR LORENZ NOTIFIED.
--- NOTE | 2018-10-19 18:40 | NUR ---
DR SINGH IS TALKING TO PATIENT AT BEDSIDE.
--- NOTE | 2018-10-19 19:05 | NUR ---
RECEIVED PATIENT ON 2L NC, PULSE OX SAT 88%. SCHEDULED BREATHING TREATMENT ADMINISTERED. TOLERATED TX WELL, NO ADVERSE SIDE EFFECTS. POST TX PULSE OX SAT ON 2L, 89%. INCREASED OXYGEN TO 3L, PULSE OX SAT 90%. INCREASED OXYGEN TO 4L, PULSE OX SAT 92%. NO RESPIRATORY DISTRESS NOTED AT THIS TIME. WILL CONTINUE TO MONITOR AND TITRATE OXYGEN PER ORDER TO MAINTAIN SAT >92%.
--- NOTE | 2018-10-19 19:23 | NUR ---
ENDORSED PATIENT AT BEDSIDE TO SOLVENT PLANT OPERATOR NURSE FOR CONTINUITY OF CARE. PATIENT IS IN STABLE CONDITION.
--- NOTE | 2018-10-19 19:30 | NUR ---
RECEIVED BEDSIDE REPORT FROM MOOKIE ARSHAD, PATIENT IN BED, IN UT AT 4 L. AAOX1 TO PERSON. BED ALARM ON. IV IN LEFT HAND 24 G SL, DRESSING INTACT, SLIGHT RESISTANCE NOTED. IV IN RIGHT AC 20 G DRESSING INTACT PATENT, IV IN RIGHT HAND, DRESSING INTACT INFUSING 1/2 NS AT 150 ML/HR. NOTED SCAB ON NOTED, CLOSED. EXPLAINED PLAN OF CARE. WILL CONTINUE TO MONITOR.
[2018-10-19 20:00] VITALS: BP 105/66
--- NOTE | 2018-10-19 20:34 | NUR ---
DUE MEDICATIONS PROVIDED, EDUCATION PROVIDED. BED ALARM ON.
[2018-10-19] MEDS ORDERED: DEXT 5% / NACL 0.45% 1,000 ML IV SCH (21:20)
--- NOTE | 2018-10-19 21:22 | NUR ---
PATIENT WAS CHANGED PER FITNESS PROFESSIONAL EVELYN. NO BM NOTED.
--- NOTE | 2018-10-19 21:43 | NUR ---
R/T PLACED PATIENT ON 3 L NC O2SAT AT 93%
--- NOTE | 2018-10-19 22:22 | NUR ---
CHANGED IV FLUIDS TO D5 ANS 1/2 NS INFUSING AT 50 ML/HR.
[2018-10-20] VITALS: BP 97/57
--- NOTE | 2018-10-20 00:02 | NUR ---
BP 97/57 WITHIN BASELINE WILL CONTINUE TO MONITOR.
--- NOTE | 2018-10-20 01:38 | NUR ---
PATIENT ASLEEP IN BED NO SIGNS OF DISTRESS.
[2018-10-20 03:52] VITALS: BP 98/58
--- NOTE | 2018-10-20 03:58 | NUR ---
BP 98/58 HR 70 PATIENT SLEEPING IN BED. BED ALARM ON.
[2018-10-20] MEDS: CLINDAMYCIN PHOS 600MG/D5W PM 50 ML IV SCH ×2 (04:03→12:45)
--- NOTE | 2018-10-20 04:14 | NUR ---
DUE CLINDAMYCIN GIVEN
[2018-10-20 06:58] LABS: BASOPHILS # (AUTO) 0.1 K/uL (0.00-0.22); BASOPHILS % (AUTO) 0.5 % (0.0-2.0); EOSINOPHILS # (AUTO) 0.3 K/uL (0-0.4); EOSINOPHILS % (AUTO) 2.6 % (0.0-4.0); HEMATOCRIT 37.6 % (36-48); HEMOGLOBIN 12.4 g/dL (12.0-16.0); LYMPHOCYTES # (AUTO) 1.4 K/uL (2.5-16.5); LYMPHOCYTES % (AUTO) 12.3 % (20.5-51.1); MEAN CORPUSCULAR HEMOGLOBIN 26 pg (27-31); MEAN CORPUSCULAR HGB CONC 33 g/dL (33-37); MEAN CORPUSCULAR VOLUME 77.9 fL (80-94); MONOCYTES # (AUTO) 0.6 K/uL (0.8-1.0); NEUTROPHILS # (AUTO) 9.4 K/uL (1.8-7.7); NEUTROPHILS % (AUTO) 79.6 % (42.2-75.2); PLATELET COUNT (AUTO) 259 K/uL (140-450); RED BLOOD CELL COUNT(AUTO) 4.82 MIL/uL (4.20-5.40); RED CELL DISTRIBUTION WIDTH 15.6 % (11.6-13.7); WHITE BLOOD COUNT (AUTO) 11.8 K/uL (4.8-10.8)
[2018-10-20] MEDS: ALBUTEROL SULFATE/IPRATROPIU 3 ML SOL IH SCH ×2 (07:00→14:17)
[2018-10-20 07:18] LABS: MAGNESIUM 2.3 mg/dL (1.8-2.4); PHOSPHORUS 2.6 mg/dL (2.5-4.9)
--- NOTE | 2018-10-20 07:30 | NUR ---
Received report from nurse Velma. Pt sitting up in bed, RT at bedside giving breathing tx. Call light within reach. Addendum: 10/20/18 at 0943 by Felicia Jackson RN Addendum: R hand IV intact & asymptomatic with ongoing D5 1/2 NS @ 50ml/hr.
[2018-10-20 08:00] VITALS: BP 83/50
[2018-10-20 08:00] LABS: ANION GAP 14.5 (8-16); CARBON DIOXIDE 22.9 mmol/L (21-32); CREATININE 1.3 mg/dL (0.6-1.3); POTASSIUM 3.4 mmol/L (3.5-5.1)
--- NOTE | 2018-10-20 08:00 | NUR ---
Pt vital signs obtained. O2 sat noted @ 87-88% on O2 @ 3Lpm via n/c, RR = 32 shallow & rapid. Pt is awake, verbal, supine. HOB elevated to 45deg, O2 supp titrated to 5Lpm via n/c. SaO2 immediately increased to 90%. BP also noted to be low @ 83/50. Dr. Moore called & notified of above.
--- NOTE | 2018-10-20 08:15 | NUR ---
Dr Moore at bedside with pt. Pt sitting up in bed, SaO2 @ 90% on O2 @ 5Lpm via n/c, RR=30/min. BP rechecked & obtained 89/54. Per physician, keep MAP >/= 60. Pt awake, verbal, aaox1. Pt states she feels fine. Carson MONROE notified. Will continue to monitor. Call light within reach.
--- NOTE | 2018-10-20 08:33 | NUR ---
SOURAV DONE [facility] INOP WRITTEN ORDER BT DR MALDONADO LORENZ ORDER VERIFIED BY ZANDER
--- NOTE | 2018-10-20 08:49 | NUR ---
CALLED DR MALDONADO LORENZ REVIEWED ABG REPORT NO NEW ORDERS
--- NOTE | 2018-10-20 09:15 | NUR ---
Received call from pt's neighbor Angelique asking how pt is doing. Asked pt if ok to give info, pt states no & wants to speak to her brother Dale instead. Per pt, ok to given info to her brother. Received contact # from Angelique for Dale Sarahy . Admissions notified. Dr Moore notified.
[2018-10-20 12:00] VITALS: BP 97/61
--- NOTE | 2018-10-20 13:40 | NUR ---
10/20/18 RD FOLLOW UP COMPLETED PLEASE REFER TO NUTRITION ASSESSMENT UNDER CARE ACTIVITY FOR ESTIMATED NUTRITIONAL NEEDS. 1. RECOMMEND PUREE DIET 2. RECOMMEND SWALLOW EVALUATION 3. RD TO FOLLOW-UP 2-3 DAYS, HIGH RISK WILEY TIMMONS, RD
--- NOTE | 2018-10-20 14:06 | NUR ---
Patient lying in bed and remains tachypneic, but no signs of distress. Patient states she "feels fine" and denies any shortness of breath or trouble breathing. Bed in low position, call light in reach.
--- NOTE | 2018-10-20 14:18 | NUR ---
French Folding Machine Operator Note: I called and spoke with patient's brother Dale Weathers . He stated patient lives at home with him and he is in agreement with patient going to [facility] for physical therapy. He reported prior to hospital admission patient was having difficulty ambulating at home. He stated patient was not using any DME at home prior to hospital admission. He told me he is the one who assist patient with ADLs at home. He reported he is with patient 23/02 and she does not have a pcp. I emphasized to him the importance for patient to have a pcp. He verbalized understanding. I provided him with address and phone number of [facility]. I confirmed with Dale patient�s home address [address] [place] [address]. Per Marlin from [facility] , she will follow up with patient and patient�s brother Dale at [facility]. I provided Karyn from [facility] with patient�s brother Dale contact information. Per Karyn, they will assist Dale to apply for [employer] on patient�s behalf. Karyn stated Yariel from their facility will arrange transportation for patient to be transfer to [facility] and Yariel will provide patient�s nurse with transportation details, Charge Nurse Hallie made aware.
--- NOTE | 2018-10-20 14:28 | NUR ---
POST HHN THERAPY CHANGED OXYGEN DEVICE TO OXYMIZER WITH SUPPLEMENTAL OXYGEN AT 3 LPM APPLICATIONS PROGRAMMER ANALYST TO MONITOR
[2018-10-20] MEDS ORDERED: CEFT1SOL1 IV (14:36)
[2018-10-20] MEDS ORDERED: CLIN600P4 IV (14:36)
[2018-10-20] MEDS ORDERED: LACT10CA1 PO (14:37)
[2018-10-20] MEDS ORDERED: AMOX-999 PO (14:39)
--- NOTE | 2018-10-20 14:52 | NUR ---
Received call from Yariel (admission coordinator from [facility]), stating room 517A is available for pt & transport has been arranged with [place] transport @ 5561 pick-up time. Pt will be under care of Dr. Arriaga.
[2018-10-20 15:07] VITALS: BP 97/61
--- NOTE | 2018-10-20 15:30 | NUR ---
Received call from Lori from [facility] stating that pt will be transferred home with hospice service d/t no Medi[employer]. Informed her that patient service coordinator from [facility] has already completed arrangements for SNF. Per Lori, she will talk to admissions & will call us for clarification. Charge nurse & case fitter notified. Awaiting update.
[2018-10-20] MEDS ORDERED: ALBU3SOL83 IH ×2 (15:44)
[2018-10-20 16:00] VITALS: BP 97/62
--- NOTE | 2018-10-20 16:42 | NUR ---
[facility] stating [facility] will be delayed to 1900 tonight. Pt notified.
--- NOTE | 2018-10-20 17:41 | NUR ---
Gave report to MOOKIE Benavides at [facility].
--- NOTE | 2018-10-20 17:45 | NUR ---
Patient unable to sign discharge forms. Spoke with Patient's brother Maximo on the Phone, notified him of discharge plan to [facility]. He verbalized understanding and agreed with plan of care.
--- NOTE | 2018-10-20 18:35 | NUR ---
Gave report and discharge/transfer documentation to EMS transport team, dressed patient in transport gown and removed 22G IV from Right hand, tip intact. Patient alert and oriented x1, personal belongings and documentation provided to the transport team. Addendum: 10/20/18 at 1918 by Yari Lucas RN Patient vital signs were stable, SpO2 90% on 3L/min via Oximizer, no signs of distress.
== END 2018-10-20 18:35 | DRG 871 ==
LOC: MED 13:28 → MTU 17:10
PROVIDERS: ADMIT General Practice; ATTEND General Practice
DX: A41.9 Sepsis, unspecified organism (principal); G93.41 Metabolic encephalopathy; N17.0 Acute kidney failure with tubular necrosis; E43 Unspecified severe protein-calorie malnutrition; J69.0 Pneumonitis due to inhalation of food and vomit; S22.31XA Fracture of one rib, right side, initial encounter for closed fracture; J90 Pleural effusion, not elsewhere classified; J44.0 Chronic obstructive pulmonary disease with (acute) lower respiratory infection; E87.0 Hyperosmolality and hypernatremia; Z68.25 Body mass index [BMI] 25.0-25.9, adult; E83.52 Hypercalcemia; E86.9 Volume depletion, unspecified; E87.6 Hypokalemia; R73.9 Hyperglycemia, unspecified; G90.9 Disorder of the autonomic nervous system, unspecified; E86.0 Dehydration; R91.8 Other nonspecific abnormal finding of lung field; K56.41 Fecal impaction; E78.2 Mixed hyperlipidemia; W18.30XA Fall on same level, unspecified, initial encounter; Y93.89 Activity, other specified; Y92.89 Other specified places as the place of occurrence of the external cause; Y99.8 Other external cause status
CPT/HCPCS: 36415; 36600; 70450; 71045; 71260; 80048; 80053; 80305; 81001; 81025; 82140; 82150; 82306; 82310; 82550; 82553; 82803; 83036; 83605; 83690; 83735; 83880; 83970; 84100; 84443; 84484; 85025; 85610; 85730; 87040; 87081; 87086; 92610; 93005; 93880; 94640; 96361; 96365; 96375; 97110; 97116; 97530; 99285; C1758; G0480; G0482; J0456; J0696; J1644; J1940; J2001; J2430; J3475; J3480; J3490; J7030; J7060; J7620; Q0092; Q9967

== ENCOUNTER 2018-11-02 20:03 | Inpatient (IN) | payer OTHER ==
[~2018-11-02] VITALS: Ht 170.2 cm; Wt 75.7 kg
[2018-11-02 20:03] VITALS: BP 79/48
[~2018-11-02 20:03] MED LIST: ALBU3SOL83 IH; AMOX-999 PO; LACT10CA1 PO
--- NOTE | 2018-11-02 20:03 | NUR ---
PT MANNY ALS. TAKEN TO BED 10
[2018-11-02] MEDS ORDERED: NACL 0.9% 1,000 ML IV SCH ×2 (20:05→21:52)
--- NOTE | 2018-11-02 20:05 | NUR ---
63 Y/O F BIBA WITH C/O SOB AND ALTERED MENTAL STATUS. AAOX1 TO SELF. BILATERAL UPPER LUNG SHAH CLEAR, R LOWER LOBE DIMINISHED BREATH SOUNDS. PT SCREAMING OUT "HELP, CANT BREATH". LABORED BREATHING. RESPIRATIONS FAST AND SHALLOW. O2 STAT AT 95% ON 15 LITERS, NON-REBREATHER MASK. -EMS ESTATABLISHED IV LINE IN THE FIELD. 84% ON ROOM AIR AT HOME. OXYGEN THERAPY STARTED IN FIELD. - PMH; END STAGE LUNG CANCER, GI BLEED
--- NOTE | 2018-11-02 20:20 | NUR ---
EKG PERFORMED AT BEDSIDE WITH RN PRESENT. PT COVERED IN GOWN DURING PROCEDURE
--- NOTE | 2018-11-02 20:30 | NUR ---
#14 FR Urinary catheter inserted utilizing sterile technique. Immediate return of 15 ml, dark urine with sediments noted. Urine sample collected and sent to lab. Pt tolerated procedure well.
[2018-11-02 20:34] LABS: HEMATOCRIT 43.3 % (36-48); HEMOGLOBIN 14.2 g/dL (12.0-16.0); MEAN CORPUSCULAR HEMOGLOBIN 25 pg (27-31); MEAN CORPUSCULAR HGB CONC 33 g/dL (33-37); MEAN CORPUSCULAR VOLUME 77.2 fL (80-94); PLATELET COUNT (AUTO) 493 K/uL (140-450); RED BLOOD CELL COUNT(AUTO) 5.61 MIL/uL (4.20-5.40); RED CELL DISTRIBUTION WIDTH 16.8 % (11.6-13.7); WHITE BLOOD COUNT (AUTO) 26.6 K/uL (4.8-10.8)
--- NOTE | 2018-11-02 20:48 | NUR ---
X-Ray at bedside.
[2018-11-02] MEDS ORDERED: PIPERACILLIN/TAZOBACTAM 3.375 GM in DEXTROSE 5% 50 ML IV ONE (20:55)
[2018-11-02] MEDS ORDERED: KETOROLAC 30 MG/ML VIAL IVP ONE (20:55)
[2018-11-02 20:57] LABS: ALBUMIN 2.1 g/dL (3.4-5.0); ANION GAP 16.9 (8-16); CARBON DIOXIDE 25.3 mmol/L (21-32); CREATININE 1.5 mg/dL (0.6-1.3); POTASSIUM 4.2 mmol/L (3.5-5.1)
[2018-11-02] MEDS ORDERED: NACL 0.9% 2,500 ML IV ONE (21:05)
[2018-11-02] MEDS ORDERED: PIPERACILLIN/TAZOBACTAM 3.375 GM VIAL IV ONE (21:07)
--- NOTE | 2018-11-02 21:07 | NUR ---
MD SANTI AT BEDSIDE TO INITIATE THORACENTISIS PROCEDURE.
[2018-11-02 21:10] LABS: LYMPHOCYTES % (MANUAL) 9 % (20-46); MONOCYTES % (MANUAL) 4 % (5-12)
--- NOTE | 2018-11-02 21:16 | NUR ---
MD SANTI SETTING UP FOR CHEST TUBE INSERTION.
--- NOTE | 2018-11-02 21:22 | NUR ---
16 F CHEST TUBE INSERTED TO R MID-AXILLARY. BLOODY DRAINAGE NOTED. 80ML OUTPUT.
--- NOTE | 2018-11-02 21:40 | NUR ---
PT PASSED LARGE SOLID BM. CLEANED AND REPOSITIONED FOR COMFORT.
[2018-11-02] MEDS ORDERED: ACETAMINOPHEN 325 MG TAB PO PRN (21:55)
[2018-11-02] MEDS ORDERED: HYDROcodone/APAP 7.5/325 MG 1 TAB PO PRN (21:55)
[2018-11-02] MEDS ORDERED: DOCUSATE SODIUM 100 MG GELCAP PO PRN (21:55)
[2018-11-02] MEDS ORDERED: MORPHINE SULFATE 2 MG/ML SYR IVP PRN (21:55)
[2018-11-02] MEDS ORDERED: ONDANSETRON 4 MG/2 ML VIAL IM/IVP PRN (21:55)
--- NOTE | 2018-11-02 22:10 | NUR ---
VERBAL ORDER RECEIVED FOR MORPHINE 1MG IVP FROM DR HANCOCK.
--- NOTE | 2018-11-02 22:11 | NUR ---
CALLED ICU FOR BED. PT IN ER HOLDING FOR ICU BED AT THIS TIME. BEVERAGE DISTILLER AWARE.
[2018-11-02] MEDS ORDERED: MORPHINE SULFATE 2 MG/ML SYR ONE (22:14)
--- NOTE | 2018-11-02 22:21 | NUR ---
PT HAS EYES CLOSED. VSS. WILL CONTINUE TO MONITOR.
[2018-11-02 22:22] LABS: APPEARANCE,URINE CLOUDY (CLEAR); BILIRUBIN,URINE 2+ (NEGATIVE); BLOOD, URINE NEGATIVE (NEGATIVE); COLOR,URINE YELLOW (YELLOW); LEUKOCYTE ESTERASE ,URINE TRACE (NEGATIVE); NITRITE, URINE NEGATIVE (NEGATIVE); PH,URINE 5.5 (5.0-9.0); UGLUCOSE NEGATIVE (NEGATIVE)
--- NOTE | 2018-11-02 22:23 | NUR ---
CHEST TUBE DRIANING TO GRAVITY. BLOODY OUTPUT NOTED. DRAINAGE NOTED AT 90ML.
--- NOTE | 2018-11-02 22:24 | NUR ---
TEXT ER/ICU DIRECTOR MANDA OF BED DELAY FOR ICU.
--- NOTE | 2018-11-02 22:30 | NUR ---
PT HYPOTENSIVE. ERMD MADE AWARE. NO NEW ORDERS RECEIVED.
[2018-11-02 22:49] LABS: CHOL/HDL RATIO 5.7 (1-4.5); FREE T4 (FREE THYROXINE) 1.19 ng/dL (0.76-1.46); MAGNESIUM 3.2 mg/dL (1.8-2.4); PHOSPHORUS 4.9 mg/dL (2.5-4.9); THYROID STIMULATING HORMONE 2.85 uIU/mL (0.34-3.74)
[2018-11-02] MEDS: DEXT 5% /NACL 0.9% 1,000 ML IV SCH (22:55)
[2018-11-02 23:01] LABS: RBC,URINE 0-5 /HPF (0-5)
--- NOTE | 2018-11-02 23:01 | NUR ---
PT HAS EYES CLOSED. BP TRENDING UP, BP 92/55. WILL CONTINUE TO MONITOR.
[2018-11-02 23:02] LABS: URINE AMORPHOUS URATE 4+ /HPF (None Seen); YEAST,URINE Moderate /HPF (None Seen)
--- NOTE | 2018-11-02 23:10 | NUR ---
PT TRANSITIONED FROM NON-REBREATHER MASK TO SIMPLE MASK AT 10 L. PT TOLERATING WELL. O2 SATURATION AT 94%.
--- NOTE | 2018-11-02 23:25 | NUR ---
TALKED WITH HORTENCIA DAMICO ON [facility] FOR CHANGE IN ADMIT ORDERS. BED ASSIGNMENT RECEIVED.
--- NOTE | 2018-11-02 23:29 | NUR ---
TALKED WITH DR KHAN, PT TO BE ADMITTED TO TELEMETRY. DR KHAN STATED HE TALKED WITH HER FAMILY AND HE WILL PUT IN ORDERS FOR HER DNR STATUS WITH PALLIATIVE CARE. JUNIOR ACCOUNTANT BOOKKEEPER NOTIFIED ICU BED NO LONGER NEEDED.
--- NOTE | 2018-11-02 23:35 | NUR ---
PT ADMITTED UNDER THE CARE OF DR FRANCIS. GOING TO ROOM 108B. BELONGINGS TRANSFERRED WITH PT. REPORT GIVEN TO MOOKIE YUEN. VSS. TRANSFER OF CARE AT THIS TIME.
[2018-11-02] MEDS ORDERED: ALBUTEROL SULFATE/IPRATROPIU 3 ML SOL IH PRN (23:50)
--- NOTE | 2018-11-02 23:50 | NUR ---
RECEIVED BEDSIDE REPORT FROM SLEEVE FIXERMOOKIE MCKEON, PATIENT IN STABLE CONDITION BUT AGITATED, PATIENT CALMED DOWN AFTER GURNEY TO BED TRANSFER. PATIENT SATING 95% ON 10L O2 VIA FACE MASK. Addendum: 11/03/18 at 0023 by Sylvia Kim RN PATIENT ARRIVED WITH CHEST TUBE INSERTED INTO RIGHT MID AXILLARY, CHEST TUBE DRAINING SEROSANGUINEOUS FLUID.
--- NOTE | 2018-11-02 23:52 | NUR ---
RECEIVED PT FROM ER VIA RED REPORT GIVEN AT BED SIDE PT AGITATED AAOX1, ON FACE MASK 10 LTS 02 95%IV ON BOTH HAND, RT HAND GAUGE #24 AND LEFT WRIST # 22 , INFUSING NS BOLUS FROM ER , BRUISES ON BILATERAL UPPER EXTREMITIES , CHEST AND ABD, ON RT CHEST TUBE DRAINING SANGUINOUS AND ATTACH TO SUCTION SET , ON TELE MONITOR SR HR 92, MRSA NARES SWAB TAKEN AND SENT TO LAB PT ORIENTED TO THE FLOOR CALL LIGHT WITHIN REACH AND BED ALARM ON AND FALL RISK PROTOCOL
[2018-11-02 23:55] VITALS: BP 84/55
[2018-11-03] MEDS ORDERED: MORPHINE SULFATE 2 MG/ML SYR IVP SCH
[2018-11-03] MEDS ORDERED: LORazepam 2 MG/ML VIAL IVP PRN
--- NOTE | 2018-11-03 | NUR ---
PATIENT RESTING IN BED NO SIGNS OF DISTRESS ON 6 L, WILL CONTINUE COMFORT CARE.
--- NOTE | 2018-11-03 00:45 | NUR ---
INSERTED FERRARO CATHETER PER ORDER, DRAINING WELL.
[2018-11-03] MEDS ORDERED: MORPHINE SULFATE 4 MG/ML SYR IVP PRN (02:05)
[2018-11-03 04:00] VITALS: BP 77/46
[2018-11-03] MEDS ORDERED: PIPERACILLIN/TAZOBACTAM 3.375 GM VIAL IV ONE (04:26)
[2018-11-03] MEDS: PIPER/TAZO 3.375GM/D5W PREMIX 50 ML IV SCH ×2 (04:27→13:00)
--- NOTE | 2018-11-03 04:30 | NUR ---
ADMINISTERED SCHEDULED MEDICATIONS. PATIENT SLEEPING, NO SIGNS OF DISTRESS ON 6L OZYMIZER, BED LOW, CALL LIGHT IN REACH. Addendum: 11/03/18 at 0432 by Yari Lucas RN CHEST TUBE SUCTION CHAMBER IS BUBBLING
--- NOTE | 2018-11-03 04:45 | NUR ---
SPOKE TO DR. KHAN REGARDING LACK OF URINE OUTPUT SINCE FERRARO CATHETER WAS INSERTED. HE ACKNOWLEDGED THE INFORMATION AND INDICATED THAT SHE IS PALLIATIVE CARE. WILL CONTINUE TO MONITOR, AND MAINTAIN SAFETY AND COMFORT.
[2018-11-03 06:09] LABS: BASOPHILS # (AUTO) 0.3 K/uL (0.00-0.22); BASOPHILS % (AUTO) 1.4 % (0.0-2.0); EOSINOPHILS # (AUTO) 0.1 K/uL (0-0.4); EOSINOPHILS % (AUTO) 0.3 % (0.0-4.0); HEMOGLOBIN 13.3 g/dL (12.0-16.0); LYMPHOCYTES # (AUTO) 1.4 K/uL (2.5-16.5); LYMPHOCYTES % (AUTO) 7.3 % (20.5-51.1); MEAN CORPUSCULAR HEMOGLOBIN 25 pg (27-31); MEAN CORPUSCULAR HGB CONC 32 g/dL (33-37); MEAN CORPUSCULAR VOLUME 78.2 fL (80-94); MONOCYTES # (AUTO) 0.9 K/uL (0.8-1.0); MONOCYTES % (AUTO) 4.6 % (1.7-9.3); NEUTROPHILS # (AUTO) 16.3 K/uL (1.8-7.7); NEUTROPHILS % (AUTO) 86.4 % (42.2-75.2); PLATELET COUNT (AUTO) 419 K/uL (140-450); RED BLOOD CELL COUNT(AUTO) 5.24 MIL/uL (4.20-5.40); RED CELL DISTRIBUTION WIDTH 16.8 % (11.6-13.7); WHITE BLOOD COUNT (AUTO) 18.8 K/uL (4.8-10.8)
[2018-11-03 06:43] LABS: ANION GAP 15.3 (8-16); CARBON DIOXIDE 23.5 mmol/L (21-32); CREATININE 1.7 mg/dL (0.6-1.3); POTASSIUM 3.8 mmol/L (3.5-5.1)
[2018-11-03] MEDS ORDERED: ALBUTEROL SULFATE/IPRATROPIU 3 ML SOL IH SCH (07:00)
--- NOTE | 2018-11-03 07:08 | NUR ---
RECEIVED ON SUPPLEMENTAL OXYGEN ON AND FUNCTIONING WELL SET AT 6 LPM VIA OXYMIZER NOTED FROM ED/MD NOTES RIGHT CHEST TUBE MID-ANTERIOR AXILLARY LINE 5TH INTERCOSTAL SPACE TO CHEST TUBE DRAIN VAC BUBBLING WELL WITH CONTINUOS SUCTION SET AT [id number] Addendum: 11/03/18 at 0727 by Carson Ocampo RT MASIMO CONTINUOS PULSE O[facility]ER [facility] AND FUNCTIONING WELL WITH LOW SATURATION SET AT 90%
--- NOTE | 2018-11-03 07:26 | NUR ---
REPORT GIVEN TO DAY SHIFT RN, PATIENT SLEEPING, RT PROVIDING TREATMENT, NO SIGNS OF DISTRESS ON 6L O2.
--- NOTE | 2018-11-03 07:30 | NUR ---
RECEIVED PT FROM COMPUTER NUMERICAL CONTROL GRINDER NURSE, PT IS ASLEEP AND LYING ON THE BED WITH SIDE RAILS UP AND CALL LIGHT WITHIN REACH, RESPIRATION IS EVEN, HAS A PERIPHERAL LINES ON THE LEFT WRIST G.22 ON SALINE LOCK AND ON THE RT HAND G.24 WITH D5NS INFUSING AT 90ML/HR. PT HAS A FERRARO CATHETER AND CHEST TUBE IN PLACE WITH DRAINAGE AT 750ML ON THE CHAMBER, PT IS ON 6L O2 ON OXYMIZER, FALL AND SAFETY PRECAUTION INITIATED, PT IS UNRESPONSIVE TO VOICE COMMAND, NO SIGN OF DISTRESS NOTED AND WILL MONITOR PT.
[2018-11-03 08:00] VITALS: BP 85/47
--- NOTE | 2018-11-03 08:16 | NUR ---
PATIENT HAS BEEN SCREENED AND CATEGORIZED HIGH NUTRITION RISK. PATIENT WILL BE SEEN WITHIN 1-2 DAYS OF ADMISSION. 11/03/18-11/04/[address]
[2018-11-03] MEDS ORDERED: LACTOBACILLUS RHAMNOSUS GG 1 EACH CAP PO SCH (09:00)
--- NOTE | 2018-11-03 09:55 | NUR ---
PT IS ASLEEP AND RESPIRATION WAS EVEN, ATTEMPTED TO AWAKEN BUT DID NOT OPEN EYES, ORAL MEDICATION WAS NOT GIVEN BECAUSE PT IS NOT FULLY AWAKE TO TAKE THE MEDICINE., HEPARIN MEDICATION WAS GIVEN VIA SUBQ ROUTE IN ABDOMEN, NO SIGN OF DISTRESS. WILL MONITOR PT.
[2018-11-03] MEDS ORDERED: SCOPOLAMINE 1.5 MG/72 HR PATCH TD SCH (10:00)
[2018-11-03] MEDS: DEXT 5% /NACL 0.9% 1,000 ML IV SCH (10:13)
--- NOTE | 2018-11-03 10:21 | NUR ---
SCOPOLAMINE PATCH WAS APPLIED TO THE PT'S RT LOWER TEMPORAL AREA NOW
[2018-11-03] MEDS: MORPHINE SULFATE 100 MG in NACL 0.9% 90 ML IV PRN (11:48)
--- NOTE | 2018-11-03 11:55 | NUR ---
STARTED THE MORPHINE DRIP TO PT NOW AT A RATE OF 1ML/HR AND WILL BE INCREASE BY 1ML EVERY 15MINS. PT/S BP IS 85/57, PULSE IS 93, RESPIRATION IS 32 AND O2 SATURATION IS AT 92% AND TEMPERATURE IS 97.3. WILL MONITOR PT.
[2018-11-03 12:00] VITALS: BP 85/57
--- NOTE | 2018-11-03 12:00 | NUR ---
PT WAS JUST BEING GIVEN COMFORT CARE NOW.
--- NOTE | 2018-11-03 12:10 | NUR ---
PT IS STILL NON-RESPONSIVE, BP IS 83/51, PULSE IS 91, O2 SATURATION IS 92%, RESPIRATION IS 34, MORPHINE IV WAS INCREASED TO 2ML NOW PER PARAMETER. WILL MONITOR PT.
--- NOTE | 2018-11-03 13:00 | NUR ---
IV MEDICATION WAS NOT GIVEN, PT IS PROVIDED WITH COMFORT MEASURE NOW.
--- NOTE | 2018-11-03 13:21 | NUR ---
FNS SERVICES NO LONGER NEEDED, PLEASE CONTACT RD IF THERE ARE ANY CHANGES IN STATUS.
--- NOTE | 2018-11-03 13:51 | NUR ---
CONFIRMED DC ON HHN THERAPY WITH DR KRYSTIAN ALANIZ [facility] ONLY
--- NOTE | 2018-11-03 14:22 | NUR ---
Supervisor Incising Note: Per Marlin from [facility] , prior to hospital admission patient was receiving hospice services from their company at home.
--- NOTE | 2018-11-03 15:02 | NUR ---
PT'S VITAL SIGNS ARE BP IS 64/40, PULSE IS 88, O2 SATURATION IS 96%, RESPIRATION IS 32/MIN, AND TEMPERATURE IS 97.8., DR. ALANIZ WAS INFORMED OF PT'S V/S AND THAT CERAMIC WORKER FROM [facility] WILL BE COMING TO SEE PT.
[2018-11-03 16:00] VITALS: BP 66/35
--- NOTE | 2018-11-03 17:26 | NUR ---
ACKNOWLEDGED AN ORDER FROM DR. CORREA FOR THE PT TO BE TRANSFERRED TO MED-SURG. PT'S VITAL SIGNS ARE, BP IS 54/33, PULSE IS 89, O2 SATURATION IS 95% AND RESPIRATION IS 20/MIN, MORPHINE DRIP IS AT 4ML/HR NOW.
--- NOTE | 2018-11-03 18:10 | NUR ---
ASSESSED PT'S VITAL SIGNS NOW AND TEMPERATURE IS 97.3, BP IS 52/32, PULSE IS 89, O2 SATURATION IS 95% AND RESPIRATION IS 21/MIN. PT'S BREATHING IS GETTING LABORED AND LIP COLOR IS PURPLE NOW. MORPHINE DRIP IS STILL ON GOING. WILL MONITOR PT.
--- NOTE | 2018-11-03 19:15 | NUR ---
ENDORSED PT TO MANAGER FIELD SERVICE NURSES FOR CONTINUITY OF CARE. PT IS STILL NON-RESPONSIVE AND ON MORPHINE DRIP.
--- NOTE | 2018-11-03 19:16 | NUR ---
RECEIVED BESIDE REPORT FROM DAY SHIFT RN, PATIENT NON-RESPONSIVE AND ON MORPHINE DRIP. PATIENT IS CALM AND COMFORTABLE, NO SIGNS OF DISTRESS ON 6L O2 VIA OXIMIZER. WILL CONTINUE COMFORT CARE MEASURES.
--- NOTE | 2018-11-03 20:20 | NUR ---
PATIENT REMAINS UNRESPONSIVE, RESTING COMFORTABLY, NO SIGNS OF DISTRESS ON 6L O2 OXYMIZER.
--- NOTE | 2018-11-03 20:50 | NUR ---
PATIENT IV SITE IN LEFT HAND HAS INFILTRATED. DC IV WITH TIP INTACT, SEE INTERVENTION FOR DETAILS. REINSERTED NEW IV TO UPPER ARM. Addendum: 11/03/18 at 2312 by Yari Lucas RN WRONG PATIENT. DOES NOT APPLY.
--- NOTE | 2018-11-03 20:56 | NUR ---
ADMINISTERED SCHEDULED MEDICATIONS. PATIENT COMPLAINED OF NAUSEA, ADMINISTERED PRN MEDICATIONS FOR NAUSEA. PATIENT UNABLE TO DRINK BOWEL PREP DUE TO NAUSEA, WILL CONTINUE TO MONITOR. Addendum: 11/03/18 at 2312 by Yari Lucas RN WRONG PATIENT. DOES NOT APPLY.
--- NOTE | 2018-11-03 21:40 | NUR ---
CHECKED ON PT, PT SLEEPING COMFORTABLY, NO SIGN OR SYMPTOM OF DISTRESS, CHEST TUBE IN PLACE DRAINING. CALL LIGHT WITHIN REACH, WILL CONTINUE TO MONITOR.
--- NOTE | 2018-11-03 22:00 | NUR ---
PATIENT HAS VOMITED, NO NAUSEA MEDICATIONS AVAILABLE AT THIS TIME, PATIENT RECENTLY RECEIVED PRN NAUSEA MEDICATION. PROVIDED CLEAN EMESIS BAG, AND COMFORT MEASURES. WILL CONTINUE TO MONITOR. Addendum: 11/03/18 at 2311 by Yari Lucas RN WRONG PATIENT. DOES NOT APPLY.
--- NOTE | 2018-11-04 00:05 | NUR ---
PATIENT RESTING COMFORTABLY, NO SIGNS OF DISTRESS ON 6L O2 OXIMIZER. WILL CONTINUE COMFORT CARE.
[2018-11-04 00:43] VITALS: BP 57/27
--- NOTE | 2018-11-04 03:15 | NUR ---
PATIENT RESTING COMFORTABLY, NO SIGNS OF DISTRESS ON 6L O2 VIA OXIMIZER. WILL CONTINUE COMFORT MEASURES.
[2018-11-04] MEDS: MORPHINE SULFATE 100 MG in NACL 0.9% 90 ML IV PRN (05:05)
--- NOTE | 2018-11-04 06:35 | NUR ---
TALKED TO BROTHERS RADHA AND BANDAR SAINIIER, FAMILY STATED UNDERSTANDING, STATED THAT THEY HAVE NO MORTUARY ASSIGN FOR PT. FAMILY STATED WILL LET US KNOW IF THEY ARE COMING.
--- NOTE | 2018-11-04 06:35 | NUR ---
DR. SALINAS AT BEDSIDE, PRONOUNCED PT PASSED AT THIS TIME, NO HEART BEAT NOTED, EKG ASYSTOLE, NO BREATHING SOUND, PUPIL FIXED.
--- NOTE | 2018-11-04 06:51 | NUR ---
CALLED [facility], TALKED TO LUIS ALBERTO, STATED UNDERSTANDING, THAT PT IS NO LONGER UNDER HER CARE BUT WILL FIND OUT ABOUT THE MORTUARY AND WILL NOTIFY US.
--- NOTE | 2018-11-04 06:52 | NUR ---
CALLED [facility], TALKED TO NELI REGARDING PT CASE #[id number].
--- NOTE | 2018-11-04 07:05 | NUR ---
CALLED [employer] OFFICE, WAS NOTIFIED THAT THEY DON'T OPEN UNTIL 0800, WILL ENDORSE.
--- NOTE | 2018-11-04 10:12 | NUR ---
REMAINS RELEASED BY OUTPATIENT PHARMACY MANAGER DEPUTY BRANDON DIOR. CASE #[id number]
--- NOTE | 2018-11-04 11:53 | NUR ---
AYAAN TELL FROM MORTUARY PATEL AND KESHAV HERE TO PACKING MACHINE INSPECTOR PT'S REMAINS, ID VERIFIED BY 2RN.
== END 2018-11-04 11:45 | disposition expired | DRG 871 ==
LOC: MED 20:03 → MTU 23:22
PROVIDERS: ADMIT General Practice; ATTEND General Practice
PROC: 0W9930Z Drainage of Right Pleural Cavity with Drainage Device, Percutaneous Approach (ICD-10-PCS; principal; 2018-11-02)
DX: A41.9 Sepsis, unspecified organism (principal); J18.9 Pneumonia, unspecified organism; N17.0 Acute kidney failure with tubular necrosis; E43 Unspecified severe protein-calorie malnutrition; G93.41 Metabolic encephalopathy; C34.90 Malignant neoplasm of unspecified part of unspecified bronchus or lung; N39.0 Urinary tract infection, site not specified; E87.1 Hypo-osmolality and hyponatremia; M84.58XA Pathological fracture in neoplastic disease, other specified site, initial encounter for fracture; J94.2 Hemothorax; Z68.26 Body mass index [BMI] 26.0-26.9, adult; R65.20 Severe sepsis without septic shock; E83.52 Hypercalcemia; E86.0 Dehydration; B37.9 Candidiasis, unspecified; I46.9 Cardiac arrest, cause unspecified; E78.2 Mixed hyperlipidemia; E83.41 Hypermagnesemia
CPT/HCPCS: 32551; 36415; 71045; 80048; 80053; 81001; 82140; 83036; 83605; 83690; 83735; 83880; 84100; 84439; 84443; 84484; 85025; 85610; 85730; 87040; 87081; 87086; 93005; 94640; 96365; 96375; 99291; C1758; J1644; J1885; J2060; J2270; J2543; J7030; J7060; J7620; Q0092